=== PATIENT | male | born 1995 | race Hispanic/Latino ===

== ENCOUNTER 2021-01-28 19:35 | Emergency (ER) | payer OTHER, SELFPAY | END 2021-01-28 20:36 | disposition home or self-care (01) | LOC: ERS 19:35 | DX: S16.1XXA Strain of muscle, fascia and tendon at neck level, initial encounter (principal); S40.212A Abrasion of left shoulder, initial encounter; V89.2XXA Person injured in unspecified motor-vehicle accident, traffic, initial encounter | CPT/HCPCS: 99283; G0390 ==